=== PATIENT | male | born 1960 | race Caucasian/White ===

== ENCOUNTER 2024-07-29 19:55 | Inpatient (IN) | payer MEDICARE ==
[2024-07-29] MEDS ORDERED: Ondansetron PF 4 MG/2 ML Vial IVP PRN (21:56)
[2024-07-29] MEDS ORDERED: Acetaminophen 325 MG TAB PO PRN (21:56)
[2024-07-29] MEDS ORDERED: hydrALAZINE 20 MG/ML VIAL SLOW IVP PRN (21:59)
[2024-07-29] MEDS: Dexamethasone 4 mg/ml Vial SLOW IVP SCH ×2 (23:09→23:17)
[2024-07-29] MEDS: HYDROcodone/Acetaminophen 7.5/325 mg Tablet PO PRN (23:09)
[2024-07-29] MEDS: Potassium Chloride 20 MEQ TAB PO SCH (23:09)
[2024-07-29 23:20] VITALS: BMI 30.7
[2024-07-30] MEDS ORDERED: Dextrose 5% in Water 1,000 ML IV PRN (04:13)
[2024-07-30] MEDS ORDERED: Glucagon 1 MG/ML KIT IM PRN (04:13)
[2024-07-30] MEDS ORDERED: Insulin Lispro 100 UNIT/ML 10 ML VIAL SC PRN (04:13)
[2024-07-30] MEDS ORDERED: Dextrose 50% Abboject 50 ML SYRINGE SLOW IVP PRN (04:13)
[2024-07-30 05:40] LABS: #Basophils Less than 0.03 10x3/uL (0.0-0.2); #Eosinophils Less than 0.03 10x3/uL (0.0-0.7); %Basophils 0.1 % (0.0-1.0); %Lymphocytes 9.4 % (21.0-51.0); %Monocytes 2.4 % (0.0-10.0); %Neutrophils 87.6 % (42.0-75.0); Hematocrit 35.9 % (42.0-52.0); Hemoglobin 13.1 g/dL (14.0-18.0); Mean Corpuscular HGB CONC 36.5 g/dL (32.0-36.0); Mean Corpuscular Volume 90.4 fL (78.0-98.0); Mean Platelet Volume 9.4 fL (7.4-10.4); Platelet Count 235 10x3/uL (130-400); RBC Distribution Width 12.2 % (11.5-14.5); Red Blood Cell (RBC) Count 3.97 mill/uL (4.70-6.10)
[2024-07-30 05:57] LABS: Hemoglobin A1c 5.5 % (4.0-6.0)
[2024-07-30 06:14] LABS: Anion Gap 15 mmol/L (10-20); BUN (Urea Nitrogen) 20 mg/dL (8.4-25.7); Calc. Creatinine Clearance 114 mL/min (70-130); Calcium 8.2 mg/dL (7.8-10.44); Carbon Dioxide 23 mmol/L (23-31); Chloride 105 mmol/L (98-107); Estimated GFR 97; Glucose 215 mg/dL (80-115); Magnesium 2.2 mg/dL (1.6-2.6); Potassium 3.7 mmol/L (3.5-5.1); Sodium 139 mmol/L (136-145)
[2024-07-30] MEDS: Triamterene/Hydrochlorothiazide 37.5 mg/25 mg Tablet PO SCH (08:15)
[2024-07-30] MEDS: Valsartan 80 MG TAB PO SCH (08:16)
[2024-07-30] MEDS: Amlodipine 10 MG TAB PO SCH (08:16)
[2024-07-30] MEDS ORDERED: Magnevist 469MG/ML 20 ML VIAL ONE (13:42)
[2024-07-30] MEDS: Insulin Lispro 100 UNIT/ML 10 ML VIAL SC PRN (14:16)
[2024-07-30] MEDS ORDERED: Iopamidol 370 76% 100 ML VIAL ONE (14:18)
[2024-07-31 05:32] LABS: #Basophils Less than 0.03 10x3/uL (0.0-0.2); #Eosinophils Less than 0.03 10x3/uL (0.0-0.7); %Monocytes 2.9 % (0.0-10.0); %Neutrophils 90.2 % (42.0-75.0); Hematocrit 36.7 % (42.0-52.0); Hemoglobin 13.3 g/dL (14.0-18.0); Mean Corpuscular HGB CONC 36.2 g/dL (32.0-36.0); Mean Corpuscular Hemoglobin 33.3 pg (27.0-31.0); Mean Platelet Volume 9.2 fL (7.4-10.4); Platelet Count 263 10x3/uL (130-400); RBC Distribution Width 12.4 % (11.5-14.5); Red Blood Cell (RBC) Count 3.99 mill/uL (4.70-6.10)
[2024-07-31 06:04] LABS: Anion Gap 13 mmol/L (10-20); BUN (Urea Nitrogen) 25 mg/dL (8.4-25.7); Calc. Creatinine Clearance 110 mL/min (70-130); Calcium 8.5 mg/dL (7.8-10.44); Carbon Dioxide 25 mmol/L (23-31); Chloride 101 mmol/L (98-107); Estimated GFR 96; Glucose 186 mg/dL (80-115); Magnesium 2.4 mg/dL (1.6-2.6); Potassium 4.1 mmol/L (3.5-5.1); Sodium 135 mmol/L (136-145)
[2024-07-31] MEDS: Pantoprazole DR 40 MG TAB PO SCH (11:56)
[2024-07-31 12:04] VITALS: TEMP 97.6
[2024-07-31 15:23] VITALS: BP 144/77
[2024-08-01] MEDS ORDERED: Pantoprazole DR 40 MG TAB PO SCH (09:00)
== END 2024-07-31 17:15 | disposition home or self-care (01) | DRG 70 ==
LOC: OBS 21:23 → OBSVTOIN 07-30 11:01
PROVIDERS: ADMIT Internal Medicine; ATTEND Internal Medicine
DX: G93.89 Other specified disorders of brain (principal); G93.6 Cerebral edema; I10 Essential (primary) hypertension; R73.9 Hyperglycemia, unspecified
CPT/HCPCS: 36415; 36416; 70450; 70553; 71260; 74177; 76376; 76770; 80048; 80053; 83036; 83735; 85025; 85610; 85730; 93005; 93010; 96365; 96374; 96375; 96376; G0378; J0780; J1100; J1815; Q9967

== ENCOUNTER 2024-08-06 17:59 | Emergency (ER) | payer MEDICARE ==
[2024-08-06 20:30] LABS: Hematocrit 44.1 % (42.0-52.0); Hemoglobin 16.3 g/dL (14.0-18.0); Mean Corpuscular Volume 89.3 fL (78.0-98.0); Platelet Count 321 10x3/uL (130-400); Red Blood Cell (RBC) Count 4.94 mill/uL (4.70-6.10)
[2024-08-06 20:52] LABS: ALT (SGPT) 69 U/L (8-55); AST (SGOT) 27 U/L (5-34); Albumin 4.2 g/dL (3.4-4.8); Alkaline Phosphatase 69 U/L (40-110); Anion Gap 19 mmol/L (10-20); BUN (Urea Nitrogen) 43 mg/dL (8.4-25.7); Bilirubin, Total 2.5 mg/dL (0.2-1.2); Calc. Creatinine Clearance 0 mL/min (70-130); Calcium 8.8 mg/dL (7.8-10.44); Carbon Dioxide 20 mmol/L (23-31); Chloride 98 mmol/L (98-107); Estimated GFR 54; Globulin 3.3 g/dL (2.4-3.5); Glucose 361 mg/dL (80-115); Potassium 3.3 mmol/L (3.5-5.1); Protein, Total 7.5 g/dL (5.8-8.1); Sodium 134 mmol/L (136-145)
[2024-08-06 21:00] LABS: Band 2 % (5-11); Lymphocytes 3 % (21-51); Monocytes 6 % (0-10); Neutrophil 89 % (42-75); Platelet Adequacy Comment Platelets Normal; RBC Morphology Within Normal Limits
[2024-08-06] MEDS ORDERED: Acetaminophen 500 MG TAB ONE (21:14)
[2024-08-06] MEDS ORDERED: Dexamethasone 10 MG/ML VIAL ONE (23:32)
[2024-08-06] MEDS ORDERED: Metoclopramide HCl 10 MG (2 mL) VIAL ONE (23:32)
== END 2024-08-07 00:34 | disposition home or self-care (01) ==
LOC: ERS 17:59
DX: G93.89 Other specified disorders of brain (principal); G93.6 Cerebral edema; H54.7 Unspecified visual loss; I10 Essential (primary) hypertension
CPT/HCPCS: 70450; 80053; 84484; 85025; 93005; J1100; J2765; 36415; 96374; 96375

== ENCOUNTER 2024-08-12 05:22 | Inpatient (IN) | payer MEDICARE ==
[2024-08-12] MEDS ORDERED: Ipratropium/Albuterol 3 ML NEB NEB PRN (10:44)
[2024-08-12] MEDS ORDERED: Dexamethasone 10 MG/ML VIAL SLOW IVP SCH (10:45)
[2024-08-12] MEDS ORDERED: traMADol HCl 50 MG TAB PO PRN (10:58)
[2024-08-12] MEDS: Lactated Ringer's 1,000 ML IV SCH ×2 (11:23)
[2024-08-12 11:24] LABS: Lactic Acid 1.88 mmol/L (0.5-2.2)
[2024-08-12] MEDS: Dexamethasone 4 mg/ml Vial SLOW IVP SCH (11:31)
[2024-08-12] MEDS ORDERED: Acetaminophen 650 MG/20.3 ML UDCUP PO PRN (11:45)
[2024-08-12] MEDS ORDERED: hydrALAZINE 20 MG/ML VIAL SLOW IVP PRN (12:15)
[2024-08-12] MEDS: Insulin Lispro 100 UNIT/ML 10 ML VIAL SC PRN (12:44)
[2024-08-12 13:52] LABS: Anion Gap 19 mmol/L (10-20); BUN (Urea Nitrogen) 94 mg/dL (8.4-25.7); Calc. Creatinine Clearance 38 mL/min (70-130); Calcium 8.2 mg/dL (7.8-10.44); Carbon Dioxide 13 mmol/L (23-31); Chloride 112 mmol/L (98-107); Estimated GFR 32; Glucose 449 mg/dL (80-115); Sodium 140 mmol/L (136-145)
[2024-08-12] MEDS: Insulin Regular, Human 100 UNIT/ML 10 ML VIAL IVP SCH (16:01)
[2024-08-12] MEDS ORDERED: Ventilator Sedation Protocol 1 EACH FS SCH (17:02)
[2024-08-12] MEDS: Etomidate 40 MG (20 mL) VIAL IVP SCH (17:05)
[2024-08-12] MEDS: Vecuronium 10 MG VIAL ONE (17:05)
[2024-08-12] MEDS ORDERED: Fentanyl BOLUS 250 ML IVPB PRN (17:15)
[2024-08-12] MEDS ORDERED: Propofol BOLUS 1,000 MG/100 ML VIAL IV PRN (17:15)
[2024-08-12] MEDS ORDERED: DISCONTINUE PREVIOUS NARCOTIC PAIN MEDICATIONS AND BENZODIAZEPINES FS SCH (17:15)
[2024-08-12] MEDS: Etomidate 40 MG (20 mL) VIAL ONE (17:57)
[2024-08-12] MEDS: Rocuronium Bromide 10 MG/ML (10ML VIAL) IVP SCH (17:58)
[2024-08-12] MEDS ORDERED: Mannitol 12.5 GM/50 ML IV SCH (18:00)
[2024-08-12] MEDS: Mannitol 12.5 GM/50 ML SLOW IVP SCH (18:02)
[2024-08-12 18:04] LABS: Actual Bicarbonate (HCO3a) 15.2 mEq/L (22-28); Base Excess (BEa) -4.7 mEq/L (-2.0 to +3.0); Calcium, Ionized (arterial) 1.16 mmol/L (1.12-1.30); Carboxyhemoglobin (COHb) 0.3 gm% (0.0-3.0); Hematocrit-ABG 48 % (42.0-52.0); Hemoglobin (Hb) 16.2 g/dL (14.0-18.0); O2 Tension (PaO2), arterial 116.9 mmHg (> 80.0); Potassium - ABG Lab 3.56 mmol/L (3.70-5.30); pH, Arterial 7.511 (7.35-7.45)
[2024-08-12 18:07] LABS: CO2 Tension 19.5 mmHg (35.0-45.0)
[2024-08-12 18:08] LABS: ALV-art Gradient 143.925 mmHg (0-20); Puncture Site Right Radial artery
[2024-08-12] MEDS: Lorazepam 2 MG/ML VIAL SLOW IVP PRN (18:10)
[2024-08-12] MEDS ORDERED: fentaNYL PF 100 MCG/2 ML SYRINGE ONE (18:28)
[2024-08-12] MEDS ORDERED: CEFAZOLIN 1 GM VIAL ONE (18:40)
[2024-08-12] MEDS ORDERED: PHENYLEPHRINE-NS 100 MCG/ML 10 ML SYRINGE ONE (18:57)
[2024-08-12] MEDS ORDERED: Vasopressin 20 UNITS/ML VIAL ONE (19:07)
[2024-08-12] MEDS ORDERED: Thrombin 5000 UNITS/5 ML VIAL ONE (19:07)
[2024-08-12] MEDS ORDERED: Rocuronium Bromide 10 MG/ML (10ML VIAL) ONE (19:52)
[2024-08-12] MEDS ORDERED: HYDROmorphone 2 MG/ML VIAL ONE (19:52)
[2024-08-12] MEDS: Propofol 1,000 MG/100 ML VIAL IV PRN (20:48)
[2024-08-12] MEDS: Famotidine/PF 20 mg/2ml Vial SLOW IVP SCH (20:48)
[2024-08-12] MEDS ORDERED: Vancomycin Dose by Levels Sliding Scale (Wt 71-99) FS SCH (21:15)
[2024-08-12] MEDS: Cefepime 2 GM in Sodium Chloride 0.9% 100 ML IVPB SCH (21:57)
[2024-08-13] MEDS: Morphine 2 MG/ML VIAL SLOW IVP PRN (01:06)
[2024-08-13 05:37] LABS: Hemoglobin 14.5 g/dL (14.0-18.0); Mean Corpuscular HGB CONC 35.4 g/dL (32.0-36.0); Mean Corpuscular Hemoglobin 32.8 pg (27.0-31.0); Mean Corpuscular Volume 92.8 fL (78.0-98.0); Mean Platelet Volume 10.8 fL (7.4-10.4); Platelet Count 170 10x3/uL (130-400); RBC Distribution Width 12.6 % (11.5-14.5); Red Blood Cell (RBC) Count 4.42 mill/uL (4.70-6.10)
[2024-08-13 06:02] LABS: ALT (SGPT) 20 U/L (8-55); AST (SGOT) 11 U/L (5-34); Albumin 2.4 g/dL (3.4-4.8); Alkaline Phosphatase 44 U/L (40-110); Anion Gap 13 mmol/L (10-20); BUN (Urea Nitrogen) 74 mg/dL (8.4-25.7); Bilirubin, Total 1.1 mg/dL (0.2-1.2); Calc. Creatinine Clearance 43 mL/min (70-130); Calcium 7.8 mg/dL (7.8-10.44); Carbon Dioxide 15 mmol/L (23-31); Chloride 121 mmol/L (98-107); Estimated GFR 36; Globulin 3.1 g/dL (2.4-3.5); Glucose 258 mg/dL (80-115); Potassium 4.4 mmol/L (3.5-5.1); Protein, Total 5.5 g/dL (5.8-8.1); Sodium 145 mmol/L (136-145)
[2024-08-13 06:31] LABS: Monocytes 5 % (0-10); Neutrophil 95 % (42-75); Platelet Adequacy Comment Platelets Normal; RBC Morphology Within Normal Limits
[2024-08-13 07:12] LABS: Vancomycin, Trough 11.9 ug/mL
[2024-08-13] MEDS ORDERED: Vancomycin 1 GM in Premix 1 BAG IVPB SCH (09:00)
[2024-08-13] MEDS: Amlodipine 10 MG TAB PO SCH (09:17)
[2024-08-13 09:42] LABS: Bilirubin Negative (Negative); Blood, Urine Trace (Negative); Glucose, Urine (Dipstick) Normal (Negative); Ketone, Urine Negative (Negative); Leukocyte Negative Leu/uL (Negative); Nitrite Negative (Negative); Protein, Urine (Dipstick) 20 mg/dL (Neg-Trace); Specific Gravity, Urine 1.031 (1.002-1.036); Squamous Epithelial None Seen HPF (0-3); Urobilinogen Normal mg/dL (Less than 2)
[2024-08-13 09:49] LABS: Sperm/HPF 2+ HPF (None Seen)
[2024-08-13 09:50] LABS: Clarity Hazy (Clear)
[2024-08-13 09:54] LABS: Bacteria/HPF Rare-Few HPF (None Seen); Transitional Epithelial 0-3 HPF (None Seen)
[2024-08-13] MEDS: VANCOMYCIN 1.25 GM/250 ML BAG 1.25 GM in Premix 1 BAG IVPB SCH (11:00)
[2024-08-13] MEDS: Fentanyl CADD 100 ML IV SCH (11:10)
[2024-08-13] MEDS: metroNIDAZOLE 500 MG in Premix 1 BAG IVPB SCH (11:48)
[2024-08-13] MEDS: Albumin 25% 25 GM (100 mL) BOT IVPB SCH (11:48)
[2024-08-13] MEDS ORDERED: metroNIDAZOLE 500 MG in Premix 1 BAG IVPB SCH (14:00)
[2024-08-13] MEDS: Labetalol HCl 100 MG/20 ML VIAL SLOW IVP PRN (18:39)
[2024-08-13] MEDS: hydrALAZINE 20 MG/ML VIAL SLOW IVP PRN (20:34)
[2024-08-14] MEDS: Labetalol HCl 100 MG/20 ML VIAL SLOW IVP SCH (00:41)
[2024-08-14 04:59] LABS: Vancomycin, Random 15.1 ug/mL (See Comment)
[2024-08-14 05:14] LABS: #Basophils Less than 0.03 10x3/uL (0.0-0.2); #Eosinophils Less than 0.03 10x3/uL (0.0-0.7); %Basophils 0.1 % (0.0-1.0); %Lymphocytes 5.8 % (21.0-51.0); %Monocytes 4.9 % (0.0-10.0); %Neutrophils 88.1 % (42.0-75.0); Hematocrit 33.2 % (42.0-52.0); Hemoglobin 11.4 g/dL (14.0-18.0); Mean Corpuscular HGB CONC 33.7 g/dL (32.0-36.0); Mean Corpuscular Hemoglobin 33.1 pg (27.0-31.0); Mean Corpuscular Volume 98.2 fL (78.0-98.0); Mean Platelet Volume 11.1 fL (7.4-10.4); Platelet Count 92 10x3/uL (130-400); Red Blood Cell (RBC) Count 3.35 mill/uL (4.70-6.10)
[2024-08-14 05:19] LABS: ALT (SGPT) 13 U/L (8-55); AST (SGOT) 10 U/L (5-34); Albumin 3.3 g/dL (3.4-4.8); Alkaline Phosphatase 36 U/L (40-110); Anion Gap 14 mmol/L (10-20); BUN (Urea Nitrogen) 61 mg/dL (8.4-25.7); Bilirubin, Total 1.1 mg/dL (0.2-1.2); Calc. Creatinine Clearance 54 mL/min (70-130); Calcium 8.1 mg/dL (7.8-10.44); Carbon Dioxide 17 mmol/L (23-31); Chloride 124 mmol/L (98-107); Estimated GFR 48; Globulin 2.4 g/dL (2.4-3.5); Glucose 255 mg/dL (80-115); Potassium 3.4 mmol/L (3.5-5.1); Protein, Total 5.7 g/dL (5.8-8.1); Sodium 152 mmol/L (136-145)
[2024-08-14 07:04] LABS: Actual Bicarbonate (HCO3a) 17.3 mEq/L (22-28); Calcium, Ionized (arterial) 1.09 mmol/L (1.12-1.30); Carboxyhemoglobin (COHb) 0.3 gm% (0.0-3.0); Hematocrit-ABG 29 % (42.0-52.0); O2 Tension (PaO2), arterial 116.5 mmHg (> 80.0); Potassium - ABG Lab 3.27 mmol/L (3.70-5.30)
[2024-08-14 07:05] LABS: Puncture Site Left Radial artery
[2024-08-14] MEDS: Labetalol HCl 100 MG/20 ML VIAL SLOW IVP PRN (11:08)
[2024-08-14] MEDS ORDERED: Magnevist 469MG/ML 20 ML VIAL ONE (12:01)
[2024-08-14] MEDS: cefTRIAXone\\ROCEPHIN 2 GM in Sodium Chloride 0.9% 100 ML IVPB SCH (14:03)
[2024-08-14] MEDS: Etomidate 40 MG (20 mL) VIAL IVP SCH (16:48)
[2024-08-14] MEDS: Vecuronium 10 MG VIAL IV SCH (16:48)
[2024-08-14] MEDS: metroNIDAZOLE 500 MG in Premix 1 BAG IVPB SCH (20:36)
[2024-08-15 05:54] LABS: Hematocrit 35.2 % (42.0-52.0); Hemoglobin 12.2 g/dL (14.0-18.0); Mean Corpuscular HGB CONC 34.7 g/dL (32.0-36.0); Mean Corpuscular Hemoglobin 33.6 pg (27.0-31.0); Mean Platelet Volume 11.4 fL (7.4-10.4); Platelet Count 93 10x3/uL (130-400); RBC Distribution Width 13.3 % (11.5-14.5); Red Blood Cell (RBC) Count 3.63 mill/uL (4.70-6.10)
[2024-08-15 06:01] LABS: ALT (SGPT) 14 U/L (8-55); AST (SGOT) 11 U/L (5-34); Albumin 3.1 g/dL (3.4-4.8); Alkaline Phosphatase 41 U/L (40-110); Anion Gap 15 mmol/L (10-20); BUN (Urea Nitrogen) 52 mg/dL (8.4-25.7); Bilirubin, Total 0.5 mg/dL (0.2-1.2); Calc. Creatinine Clearance 71 mL/min (70-130); Calcium 8.3 mg/dL (7.8-10.44); Carbon Dioxide 19 mmol/L (23-31); Chloride 124 mmol/L (98-107); Estimated GFR 66; Globulin 2.7 g/dL (2.4-3.5); Glucose 288 mg/dL (80-115); Potassium 3.2 mmol/L (3.5-5.1); Protein, Total 5.8 g/dL (5.8-8.1); Sodium 155 mmol/L (136-145)
[2024-08-15] MEDS: Sodium Chloride 0.45% 1,000 ML IV SCH ×2 (06:17→15:46)
[2024-08-15] MEDS: Potassium Bicarbonate/Cit Ac 20 MEQ TAB PER TUBE SCH ×2 (06:28→13:43)
[2024-08-15] MEDS ORDERED: Electrolyte Replacement Protocol FS PRN (06:30)
[2024-08-15 06:38] LABS: Band 1 % (5-11); Lymphocytes 2 % (21-51); Monocytes 2 % (0-10); Myelocyte 1 % (0-0); Neutrophil 94 % (42-75); Platelet Adequacy Comment Platelets Decreased; Polychromasia SLIGHT = 2-3 cells HPF (0-2)
[2024-08-15 07:17] LABS: Actual Bicarbonate (HCO3a) 18.7 mEq/L (22-28); Base Excess (BEa) -2.6 mEq/L (-2.0 to +3.0); Calcium, Ionized (arterial) 1.13 mmol/L (1.12-1.30); Carboxyhemoglobin (COHb) 0.3 gm% (0.0-3.0); Hematocrit-ABG 34 % (42.0-52.0); Hemoglobin (Hb) 11.5 g/dL (14.0-18.0); O2 Tension (PaO2), arterial 145.7 mmHg (> 80.0); Potassium - ABG Lab 4.01 mmol/L (3.70-5.30); pH, Arterial 7.523 (7.35-7.45)
[2024-08-15 07:20] LABS: CO2 Tension 23.3 mmHg (35.0-45.0); Puncture Site Right Brachial art
[2024-08-15 07:21] LABS: ALV-art Gradient 39.075 mmHg (0-20)
[2024-08-15 07:28] LABS: Metamyelocyte 2 % (0-0)
[2024-08-15] MEDS: niCARdipine 25 MG in Sodium Chloride 0.9% 250 ML 250 ML IVPB SCH (08:53)
[2024-08-15] MEDS: Electrolyte Replacement Protocol 1 EACH FS ONE (09:10)
[2024-08-15] MEDS: chlorproMAZINE HCl 50 MG/2 ML AMP IVPB SCH (09:57)
[2024-08-15] MEDS: SODIUM CHLORIDE 0.9% IVPB SCH ×2 (11:09→18:45)
[2024-08-15] MEDS: CHLORPROMAZINE HCL IVPB SCH (11:09)
[2024-08-15 11:15] LABS: Anion Gap 14 mmol/L (10-20); BUN (Urea Nitrogen) 46 mg/dL (8.4-25.7); Calc. Creatinine Clearance 78 mL/min (70-130); Calcium 8.1 mg/dL (7.8-10.44); Carbon Dioxide 19 mmol/L (23-31); Chloride 123 mmol/L (98-107); Estimated GFR 75; Glucose 322 mg/dL (80-115); Potassium 3.5 mmol/L (3.5-5.1); Sodium 152 mmol/L (136-145)
[2024-08-15 15:18] LABS: Fungitell Beta (1,3) D-Glucan Negative (.)
[2024-08-15] MEDS ORDERED: Glucagon 1 MG/ML KIT IM PRN (16:19)
[2024-08-15] MEDS ORDERED: Dextrose 50% Abboject 50 ML SYRINGE SLOW IVP PRN (16:19)
[2024-08-15] MEDS ORDERED: Dextrose 5% in Water 1,000 ML IV PRN (16:19)
[2024-08-15 16:38] LABS: Sodium 154 mmol/L (136-145)
[2024-08-15] MEDS: fentaNYL 50 mcg/mL 1 mL Vial SLOW IVP SCH (18:00)
[2024-08-15] MEDS: NICARDIPINE IVPB SCH (18:45)
[2024-08-15] MEDS: fentaNYL 50 mcg/mL 1 mL Vial ONE (19:34)
[2024-08-15] MEDS: Insulin Glargine 30 UNITS/0.3 ML VIAL SC SCH (19:55)
[2024-08-15] MEDS: Insulin Lispro 100 UNIT/ML 10 ML VIAL SC PRN (19:56)
[2024-08-16] MEDS: Famotidine/PF 20 mg/2ml Vial SLOW IVP SCH (09:10)
[2024-08-16 09:30] LABS: #Basophils 0.04 10x3/uL (0.0-0.2); %Basophils 0.3 % (0.0-1.0); %Eosinophils 0.2 % (0.0-10.0); %Monocytes 5.2 % (0.0-10.0); %Neutrophils 85.6 % (42.0-75.0); Hematocrit 35.1 % (42.0-52.0); Hemoglobin 11.8 g/dL (14.0-18.0); Mean Corpuscular HGB CONC 33.6 g/dL (32.0-36.0); Mean Platelet Volume 10.7 fL (7.4-10.4); Platelet Count 113 10x3/uL (130-400); RBC Distribution Width 13.3 % (11.5-14.5); Red Blood Cell (RBC) Count 3.58 mill/uL (4.70-6.10)
[2024-08-16 09:59] LABS: ALT (SGPT) 15 U/L (8-55); AST (SGOT) 13 U/L (5-34); Albumin 2.7 g/dL (3.4-4.8); Alkaline Phosphatase 40 U/L (40-110); Anion Gap 13 mmol/L (10-20); BUN (Urea Nitrogen) 37 mg/dL (8.4-25.7); Bilirubin, Total 0.7 mg/dL (0.2-1.2); Calc. Creatinine Clearance 109 mL/min (70-130); Carbon Dioxide 21 mmol/L (23-31); Chloride 124 mmol/L (98-107); Estimated GFR 97; Globulin 2.7 g/dL (2.4-3.5); Glucose 259 mg/dL (80-115); Potassium 3.5 mmol/L (3.5-5.1); Protein, Total 5.4 g/dL (5.8-8.1); Sodium 154 mmol/L (136-145)
[2024-08-16] MEDS: Potassium Bicarbonate/Cit Ac 20 MEQ TAB PER TUBE SCH (12:37)
[2024-08-16] MEDS: Insulin Lispro 100 UNIT/ML 10 ML VIAL SC PRN (20:25)
[2024-08-16] MEDS: Ondansetron PF 4 MG/2 ML Vial IVP PRN (22:57)
[2024-08-17 04:14] LABS: #Basophils Less than 0.03 10x3/uL (0.0-0.2); %Basophils 0.1 % (0.0-1.0); %Eosinophils 0.2 % (0.0-10.0); %Lymphocytes 7.3 % (21.0-51.0); %Neutrophils 85.7 % (42.0-75.0); Hematocrit 33.5 % (42.0-52.0); Hemoglobin 11.3 g/dL (14.0-18.0); Mean Corpuscular HGB CONC 33.7 g/dL (32.0-36.0); Mean Corpuscular Hemoglobin 33.3 pg (27.0-31.0); Mean Corpuscular Volume 98.8 fL (78.0-98.0); Mean Platelet Volume 10.8 fL (7.4-10.4); Platelet Count 115 10x3/uL (130-400); RBC Distribution Width 13.3 % (11.5-14.5); Red Blood Cell (RBC) Count 3.39 mill/uL (4.70-6.10)
[2024-08-17 04:35] LABS: ALT (SGPT) 19 U/L (8-55); AST (SGOT) 17 U/L (5-34); Albumin 2.4 g/dL (3.4-4.8); Alkaline Phosphatase 38 U/L (40-110); Anion Gap 13 mmol/L (10-20); BUN (Urea Nitrogen) 33 mg/dL (8.4-25.7); Bilirubin, Total 0.7 mg/dL (0.2-1.2); Calc. Creatinine Clearance 109 mL/min (70-130); Calcium 7.5 mg/dL (7.8-10.44); Carbon Dioxide 20 mmol/L (23-31); Chloride 122 mmol/L (98-107); Estimated GFR 97; Globulin 2.7 g/dL (2.4-3.5); Glucose 245 mg/dL (80-115); Potassium 3.5 mmol/L (3.5-5.1); Protein, Total 5.1 g/dL (5.8-8.1); Sodium 151 mmol/L (136-145)
[2024-08-17] MEDS ORDERED: DISCONTINUE PREVIOUS NARCOTIC PAIN MEDICATIONS AND BENZODIAZEPINES FS SCH (18:45)
[2024-08-17] MEDS ORDERED: Fentanyl BOLUS 250 ML IVPB PRN (18:45)
[2024-08-17] MEDS ORDERED: Fentanyl CADD 100 ML IV SCH (18:45)
[2024-08-17] MEDS ORDERED: Propofol BOLUS 1,000 MG/100 ML VIAL IV PRN (18:45)
[2024-08-17] MEDS: Morphine 2 MG/ML VIAL SLOW IVP PRN (20:14)
[2024-08-18 05:51] LABS: #Basophils Less than 0.03 10x3/uL (0.0-0.2); %Basophils 0.1 % (0.0-1.0); %Eosinophils 0.6 % (0.0-10.0); %Lymphocytes 8.8 % (21.0-51.0); %Monocytes 4.4 % (0.0-10.0); %Neutrophils 83.9 % (42.0-75.0); Hematocrit 31.5 % (42.0-52.0); Hemoglobin 10.7 g/dL (14.0-18.0); Mean Corpuscular Hemoglobin 33.3 pg (27.0-31.0); Mean Corpuscular Volume 98.1 fL (78.0-98.0); Mean Platelet Volume 10.9 fL (7.4-10.4); Platelet Count 103 10x3/uL (130-400); Red Blood Cell (RBC) Count 3.21 mill/uL (4.70-6.10)
[2024-08-18 06:06] LABS: ALT (SGPT) 25 U/L (8-55); AST (SGOT) 21 U/L (5-34); Albumin 2.2 g/dL (3.4-4.8); Alkaline Phosphatase 36 U/L (40-110); Anion Gap 10 mmol/L (10-20); BUN (Urea Nitrogen) 31 mg/dL (8.4-25.7); Bilirubin, Total 0.5 mg/dL (0.2-1.2); Calc. Creatinine Clearance 143 mL/min (70-130); Calcium 7.1 mg/dL (7.8-10.44); Carbon Dioxide 22 mmol/L (23-31); Chloride 119 mmol/L (98-107); Estimated GFR 104; Globulin 2.4 g/dL (2.4-3.5); Glucose 136 mg/dL (80-115); Potassium 3.2 mmol/L (3.5-5.1); Protein, Total 4.6 g/dL (5.8-8.1); Sodium 148 mmol/L (136-145)
[2024-08-18 07:18] LABS: Actual Bicarbonate (HCO3a) 22.4 mEq/L (22-28); Base Excess (BEa) -0.5 mEq/L (-2.0 to +3.0); CO2 Tension 30.7 mmHg (35.0-45.0); Calcium, Ionized (arterial) 1.07 mmol/L (1.12-1.30); Carboxyhemoglobin (COHb) 0.3 gm% (0.0-3.0); Hematocrit-ABG 31 % (42.0-52.0); Hemoglobin (Hb) 10.5 g/dL (14.0-18.0); O2 Tension (PaO2), arterial 127.6 mmHg (> 80.0); Potassium - ABG Lab 3.06 mmol/L (3.70-5.30); pH, Arterial 7.481 (7.35-7.45)
[2024-08-18 07:29] LABS: Puncture Site Right Radial artery
[2024-08-18 07:30] LABS: ALV-art Gradient 47.925 mmHg (0-20)
[2024-08-18] MEDS: Potassium Chloride 20 MEQ TAB PO SCH (09:32)
[2024-08-18 20:15] LABS: Potassium 3.4 mmol/L (3.5-5.1)
[2024-08-18] MEDS: Potassium Chloride 20 MEQ in Premix 1 BAG IVPB SCH (22:44)
[2024-08-19] MEDS: Propofol 1,000 MG/100 ML VIAL IV PRN (02:29)
[2024-08-19 05:40] LABS: ALT (SGPT) 32 U/L (8-55); AST (SGOT) 25 U/L (5-34); Albumin 2.1 g/dL (3.4-4.8); Alkaline Phosphatase 45 U/L (40-110); Anion Gap 10 mmol/L (10-20); BUN (Urea Nitrogen) 29 mg/dL (8.4-25.7); Bilirubin, Total 0.4 mg/dL (0.2-1.2); Calc. Creatinine Clearance 146 mL/min (70-130); Calcium 6.9 mg/dL (7.8-10.44); Carbon Dioxide 20 mmol/L (23-31); Chloride 117 mmol/L (98-107); Estimated GFR 103; Globulin 2.5 g/dL (2.4-3.5); Glucose 197 mg/dL (80-115); Potassium 3.4 mmol/L (3.5-5.1); Protein, Total 4.6 g/dL (5.8-8.1); Sodium 144 mmol/L (136-145)
[2024-08-19 06:28] LABS: #Basophils Less than 0.03 10x3/uL (0.0-0.2); %Basophils 0.1 % (0.0-1.0); %Eosinophils 0.6 % (0.0-10.0); %Lymphocytes 6.5 % (21.0-51.0); %Monocytes 4.6 % (0.0-10.0); Hematocrit 33.2 % (42.0-52.0); Hemoglobin 11.2 g/dL (14.0-18.0); Mean Corpuscular HGB CONC 33.7 g/dL (32.0-36.0); Mean Corpuscular Volume 97.9 fL (78.0-98.0); Mean Platelet Volume 11.9 fL (7.4-10.4); Platelet Count 100 10x3/uL (130-400); RBC Distribution Width 13.1 % (11.5-14.5); Red Blood Cell (RBC) Count 3.39 mill/uL (4.70-6.10)
[2024-08-19] MEDS: CALCIUM GLUC 1 GM/NS 50 ML 1 GM in Premix 1 BAG IVPB SCH (06:32)
[2024-08-19 07:11] LABS: Actual Bicarbonate (HCO3a) 22.7 mEq/L (22-28); Base Excess (BEa) 0.5 mEq/L (-2.0 to +3.0); CO2 Tension 28.3 mmHg (35.0-45.0); Calcium, Ionized (arterial) 1.05 mmol/L (1.12-1.30); Carboxyhemoglobin (COHb) 0.3 gm% (0.0-3.0); Hematocrit-ABG 30 % (42.0-52.0); Hemoglobin (Hb) 10.3 g/dL (14.0-18.0); O2 Tension (PaO2), arterial 127.7 mmHg (> 80.0); Potassium - ABG Lab 3.17 mmol/L (3.70-5.30); pH, Arterial 7.522 (7.35-7.45)
[2024-08-19 07:16] LABS: ALV-art Gradient 50.825 mmHg (0-20); Puncture Site Right Radial artery
[2024-08-19] MEDS: Potassium Chloride 20 MEQ TAB PO SCH (10:03)
[2024-08-19 18:03] LABS: Potassium 4.9 mmol/L (3.5-5.1)
[2024-08-20 06:23] LABS: #Basophils Less than 0.03 10x3/uL (0.0-0.2); %Basophils 0.2 % (0.0-1.0); %Eosinophils 0.7 % (0.0-10.0); %Lymphocytes 6.4 % (21.0-51.0); %Monocytes 3.6 % (0.0-10.0); %Neutrophils 87.2 % (42.0-75.0); Hematocrit 28.8 % (42.0-52.0); Hemoglobin 9.8 g/dL (14.0-18.0); Mean Corpuscular Hemoglobin 33.1 pg (27.0-31.0); Mean Corpuscular Volume 97.3 fL (78.0-98.0); Mean Platelet Volume 11.4 fL (7.4-10.4); Platelet Count 126 10x3/uL (130-400); Red Blood Cell (RBC) Count 2.96 mill/uL (4.70-6.10)
[2024-08-20 06:36] LABS: ALT (SGPT) 30 U/L (8-55); AST (SGOT) 20 U/L (5-34); Albumin 1.9 g/dL (3.4-4.8); Alkaline Phosphatase 46 U/L (40-110); Anion Gap 13 mmol/L (10-20); BUN (Urea Nitrogen) 27 mg/dL (8.4-25.7); Bilirubin, Total 0.3 mg/dL (0.2-1.2); Calc. Creatinine Clearance 148 mL/min (70-130); Calcium 7.4 mg/dL (7.8-10.44); Carbon Dioxide 22 mmol/L (23-31); Chloride 116 mmol/L (98-107); Estimated GFR 103; Globulin 2.6 g/dL (2.4-3.5); Glucose 226 mg/dL (80-115); Potassium 3.6 mmol/L (3.5-5.1); Protein, Total 4.5 g/dL (5.8-8.1); Sodium 147 mmol/L (136-145)
[2024-08-20] MEDS: Sodium Chloride 0.45% 1,000 ML IV SCH (09:18)
[2024-08-20 09:21] LABS: HIV (1/2) Antibody/Antigen NONREACTIVE (NonReactive); HIV 1/2 INDEX 0.04 S/CO (<1.00)
[2024-08-20 10:32] LABS: CO2 Tension 21.2 mmHg (35.0-45.0)
[2024-08-20] MEDS: hydrALAZINE 20 MG/ML VIAL SLOW IVP PRN (21:06)
[2024-08-21 05:56] LABS: #Basophils 0.03 10x3/uL (0.0-0.2); %Basophils 0.2 % (0.0-1.0); %Eosinophils 0.6 % (0.0-10.0); %Lymphocytes 6.7 % (21.0-51.0); %Monocytes 4.3 % (0.0-10.0); %Neutrophils 85.6 % (42.0-75.0); Hematocrit 28.1 % (42.0-52.0); Hemoglobin 9.4 g/dL (14.0-18.0); Mean Corpuscular HGB CONC 33.5 g/dL (32.0-36.0); Mean Corpuscular Hemoglobin 33.1 pg (27.0-31.0); Mean Corpuscular Volume 98.9 fL (78.0-98.0); Mean Platelet Volume 10.7 fL (7.4-10.4); Platelet Count 134 10x3/uL (130-400); RBC Distribution Width 13.2 % (11.5-14.5); Red Blood Cell (RBC) Count 2.84 mill/uL (4.70-6.10)
[2024-08-21 06:33] LABS: ALT (SGPT) 25 U/L (8-55); AST (SGOT) 16 U/L (5-34); Albumin 1.8 g/dL (3.4-4.8); Alkaline Phosphatase 42 U/L (40-110); Anion Gap 9 mmol/L (10-20); BUN (Urea Nitrogen) 24 mg/dL (8.4-25.7); Bilirubin, Total 0.4 mg/dL (0.2-1.2); Calc. Creatinine Clearance 182 mL/min (70-130); Calcium 7.3 mg/dL (7.8-10.44); Carbon Dioxide 23 mmol/L (23-31); Chloride 120 mmol/L (98-107); Estimated GFR 110; Globulin 2.4 g/dL (2.4-3.5); Glucose 155 mg/dL (80-115); Potassium 3.3 mmol/L (3.5-5.1); Protein, Total 4.2 g/dL (5.8-8.1); Sodium 149 mmol/L (136-145)
[2024-08-21 07:30] LABS: Actual Bicarbonate (HCO3a) 23.4 mEq/L (22-28); Base Excess (BEa) 0.7 mEq/L (-2.0 to +3.0); CO2 Tension 30.5 mmHg (35.0-45.0); Hematocrit-ABG 28 % (42.0-52.0); Hemoglobin (Hb) 9.6 g/dL (14.0-18.0); Potassium - ABG Lab 3.19 mmol/L (3.70-5.30); pH, Arterial 7.503 (7.35-7.45)
[2024-08-21 08:22] LABS: Puncture Site Left Radial artery
[2024-08-21 08:23] LABS: ALV-art Gradient 53.775 mmHg (0-20)
[2024-08-21] MEDS: Potassium Chloride 20 MEQ TAB PO SCH (09:25)
[2024-08-21 21:28] LABS: Potassium 3.9 mmol/L (3.5-5.1)
[2024-08-22] MEDS ORDERED: Lidocaine 1% PF 5 ML VIAL ONE (09:58)
[2024-08-22] MEDS ORDERED: Sodium Bicarbonate 2.5 MEQ/5 ML SDV ONE (09:58)
[2024-08-22] MEDS ORDERED: Heparin 1,000 UNITS/500ML (ARTLINE) ONE (09:58)
[2024-08-22] MEDS ORDERED: Famotidine/PF 20 mg/2ml Vial ONE (20:00)
[2024-08-22] MEDS ORDERED: metroNIDAZOLE 500 MG (100 mL) BAG ONE (20:00)
[2024-08-23] MEDS ORDERED: cefTRIAXone (ROCEPHIN) 2 GM VIAL ONE ×2 (05:17→13:51)
[2024-08-23] MEDS ORDERED: hydrALAZINE 20 MG/ML VIAL ONE (05:17)
[2024-08-23] MEDS ORDERED: Vecuronium 10 MG VIAL ONE (09:09)
[2024-08-23] MEDS ORDERED: Famotidine/PF 20 mg/2ml Vial ONE (09:09)
[2024-08-23] MEDS ORDERED: fentaNYL 50 mcg/mL 1 mL Vial ONE ×3 (09:20→09:47)
[2024-08-23] MEDS ORDERED: Midazolam HCl 2 mg/2 ml Vial ONE ×4 (09:20→09:47)
[2024-08-23] MEDS ORDERED: Lidocaine 1% w/Epinephrine 1:100K 20 ML VIAL ONE (09:35)
[2024-08-23] MEDS ORDERED: Iopamidol 370 76% 100 ML VIAL ONE (11:48)
[2024-08-23] MEDS ORDERED: metroNIDAZOLE 500 MG (100 mL) BAG ONE (11:52)
[2024-08-23] MEDS ORDERED: hydrALAZINE 10 MG TAB ONE (15:48)
[2024-08-23] MEDS ORDERED: Furosemide 40 MG (4 mL) VIAL ONE (17:22)
[2024-08-24] MEDS: Lidocaine 1% w/Epinephrine 1:100K 20 ML VIAL ONE
[2024-08-24] MEDS: Midazolam HCl 2 mg/2 ml Vial ONE ×2
[2024-08-24] MEDS: Vecuronium 10 MG VIAL ONE
[2024-08-24] MEDS: Furosemide 40 MG (4 mL) VIAL ONE (00:01)
[2024-08-24] MEDS: Furosemide 40 MG (4 mL) VIAL SLOW IVP SCH ×2 (00:01→08:51)
[2024-08-24] MEDS: fentaNYL 50 mcg/mL 1 mL Vial ONE ×3 (00:01)
[2024-08-24 02:51] LABS: #Basophils 0.02 10x3/uL (0.0-0.2); #Monocytes 0.43 10x3/uL (0.11-0.59); #Neutrophils 8.74 10x3/uL (1.40-6.50); %Basophils 0.2 % (0.0-1.0); %Lymphocytes 6.8 % (21.0-51.0); %Monocytes 4.1 % (0.0-10.0); Hematocrit 28.6 % (42.0-52.0); Hemoglobin 9.6 g/dL (14.0-18.0); Mean Corpuscular HGB CONC 33.6 g/dL (32.0-36.0); Mean Corpuscular Hemoglobin 33.1 pg (27.0-31.0); Mean Corpuscular Volume 98.6 fL (78.0-98.0); Mean Platelet Volume 10.6 fL (7.4-10.4); Platelet Count 173 10x3/uL (130-400); RBC Distribution Width 13.2 % (11.5-14.5); White Blood Cell (WBC) Count 10.41 10x3/uL (4.8-10.8)
[2024-08-24 04:31] LABS: #Basophils Less than 0.03 10x3/uL (0.0-0.2); %Basophils 0.3 % (0.0-1.0); %Eosinophils 0.8 % (0.0-10.0); %Lymphocytes 7.4 % (21.0-51.0); %Monocytes 4.6 % (0.0-10.0); %Neutrophils 84.8 % (42.0-75.0); Hematocrit 28.3 % (42.0-52.0); Hemoglobin 9.5 g/dL (14.0-18.0); Mean Corpuscular HGB CONC 33.6 g/dL (32.0-36.0); Mean Corpuscular Hemoglobin 32.8 pg (27.0-31.0); Mean Corpuscular Volume 97.6 fL (78.0-98.0); Mean Platelet Volume 9.9 fL (7.4-10.4); Platelet Count 165 10x3/uL (130-400); RBC Distribution Width 13.2 % (11.5-14.5)
[2024-08-24 05:12] LABS: ALT (SGPT) 21 U/L (8-55); AST (SGOT) 20 U/L (5-34); Albumin 1.9 g/dL (3.4-4.8); Alkaline Phosphatase 42 U/L (40-110); Anion Gap 8 mmol/L (10-20); BUN (Urea Nitrogen) 18 mg/dL (8.4-25.7); Bilirubin, Total 0.3 mg/dL (0.2-1.2); Calc. Creatinine Clearance 200 mL/min (70-130); Calcium 7.2 mg/dL (7.8-10.44); Carbon Dioxide 27 mmol/L (23-31); Chloride 115 mmol/L (98-107); Estimated GFR 113; Globulin 2.6 g/dL (2.4-3.5); Glucose 103 mg/dL (80-115); Potassium 2.8 mmol/L (3.5-5.1); Protein, Total 4.5 g/dL (5.8-8.1); Sodium 147 mmol/L (136-145)
[2024-08-24] MEDS ORDERED: Potassium Chloride 20 MEQ TAB PO SCH (08:00)
[2024-08-24] MEDS: Potassium Chloride 40 MEQ in Premix 1 BAG IVPB SCH ×2 (08:43→18:30)
[2024-08-24] MEDS: Electrolyte Replacement Protocol 1 EACH FS ONE (09:00)
[2024-08-24 09:31] LABS: Anion Gap 8 mmol/L (10-20); BUN (Urea Nitrogen) 21 mg/dL (8.4-25.7); Calc. Creatinine Clearance 192 mL/min (70-130); Calcium 7.2 mg/dL (7.8-10.44); Carbon Dioxide 25 mmol/L (23-31); Chloride 116 mmol/L (98-107); Estimated GFR 112; Glucose 155 mg/dL (80-115); Magnesium 2.2 mg/dL (1.6-2.6); Phosphorus 2.9 mg/dL (2.3-4.7); Potassium 3.2 mmol/L (3.5-5.1); Sodium 146 mmol/L (136-145)
[2024-08-24] MEDS ORDERED: Electrolyte Replacement Protocol FS PRN (10:15)
[2024-08-24] MEDS ORDERED: Midazolam HCl 2 mg/2 ml Vial ONE (13:20)
[2024-08-24] MEDS ORDERED: fentaNYL 50 mcg/mL 1 mL Vial ONE (13:21)
[2024-08-24] MEDS ORDERED: Propofol 500 MG/50 ML VIAL ONE (13:21)
[2024-08-24] MEDS ORDERED: PHENYLEPHRINE-NS 100 MCG/ML 10 ML SYRINGE ONE ×2 (13:30→13:45)
[2024-08-24] MEDS ORDERED: ePHEDrine Sulfate 50 MG/10 ML VIAL ONE (13:30)
[2024-08-24] MEDS ORDERED: PROPOFOL 200 MG/20 ML VIAL ONE (13:30)
[2024-08-24 16:27] LABS: Chloride 117 mmol/L (98-107); Potassium 3.3 mmol/L (3.5-5.1); Sodium 147 mmol/L (136-145)
[2024-08-24 16:28] LABS: Anion Gap 9 mmol/L (10-20); Carbon Dioxide 23 mmol/L (23-31)
[2024-08-25] MEDS: cefTRIAXone (ROCEPHIN) 2 GM VIAL ONE (04:47)
[2024-08-25 04:53] LABS: #Basophils Less than 0.03 10x3/uL (0.0-0.2); #Eosinophils Less than 0.03 10x3/uL (0.0-0.7); %Basophils 0.1 % (0.0-1.0); %Eosinophils 0.3 % (0.0-10.0); %Lymphocytes 5.3 % (21.0-51.0); %Monocytes 4.4 % (0.0-10.0); %Neutrophils 88.2 % (42.0-75.0); Hematocrit 27.9 % (42.0-52.0); Hemoglobin 9.5 g/dL (14.0-18.0); Mean Corpuscular HGB CONC 34.1 g/dL (32.0-36.0); Mean Corpuscular Hemoglobin 32.8 pg (27.0-31.0); Mean Corpuscular Volume 96.2 fL (78.0-98.0); Mean Platelet Volume 10.4 fL (7.4-10.4); Platelet Count 171 10x3/uL (130-400); RBC Distribution Width 13.4 % (11.5-14.5)
[2024-08-25 05:12] LABS: ALT (SGPT) 22 U/L (8-55); AST (SGOT) 21 U/L (5-34); Albumin 1.9 g/dL (3.4-4.8); Alkaline Phosphatase 41 U/L (40-110); Anion Gap 11 mmol/L (10-20); BUN (Urea Nitrogen) 21 mg/dL (8.4-25.7); Bilirubin, Total 0.4 mg/dL (0.2-1.2); Calc. Creatinine Clearance 211 mL/min (70-130); Calcium 7.1 mg/dL (7.8-10.44); Carbon Dioxide 24 mmol/L (23-31); Chloride 117 mmol/L (98-107); Estimated GFR 115; Globulin 2.5 g/dL (2.4-3.5); Glucose 88 mg/dL (80-115); Protein, Total 4.4 g/dL (5.8-8.1); Sodium 149 mmol/L (136-145)
[2024-08-25] MEDS: Potassium Chloride 20 MEQ in Premix 1 BAG IVPB SCH ×2 (05:43→17:19)
[2024-08-25] MEDS: Potassium Chloride 20 MEQ TAB PO SCH (06:36)
[2024-08-25] MEDS ORDERED: PHENYLEPHRINE-NS 100 MCG/ML 10 ML SYRINGE ONE ×2 (07:58→09:00)
[2024-08-25] MEDS ORDERED: PROPOFOL 20 ML ONE (07:58)
[2024-08-25] MEDS ORDERED: Fentanyl 250 MCG/5 ML VIAL ONE (07:58)
[2024-08-25] MEDS ORDERED: MINERAL OIL/WHITE PETROLATUM 3.5 GM TUBE ONE (08:43)
[2024-08-25] MEDS ORDERED: SUGAMMADEX SODIUM 200 MG/2 ML VIAL ONE (08:57)
[2024-08-25] MEDS ORDERED: fentaNYL PF 100 MCG/2 ML SYRINGE ONE (09:03)
[2024-08-25] MEDS: Pantoprazole 40 MG VIAL IVP SCH (09:43)
[2024-08-25] MEDS: Dextrose 5% in Water 1,000 ML IV SCH (09:44)
[2024-08-25] MEDS: Albumin 25% 25 GM (100 mL) BOT IVPB SCH (11:45)
[2024-08-25 13:09] LABS: Potassium 3.1 mmol/L (3.5-5.1)
[2024-08-25] MEDS: Furosemide 40 MG (4 mL) VIAL SLOW IVP SCH (14:01)
[2024-08-25] MEDS: Potassium Bicarbonate/Cit Ac 20 MEQ TAB PO SCH (14:23)
[2024-08-25 17:11] LABS: Potassium 3.1 mmol/L (3.5-5.1)
[2024-08-25 17:17] LABS: Magnesium 1.9 mg/dL (1.6-2.6)
[2024-08-25 18:06] VITALS: BMI 32.5
[2024-08-25] MEDS: Magnesium 2 GM/50 ML(in water) 2 GM in Premix 1 BAG IVPB SCH (23:17)
[2024-08-26 05:19] LABS: #Basophils Less than 0.03 10x3/uL (0.0-0.2); #Eosinophils Less than 0.03 10x3/uL (0.0-0.7); %Basophils 0.2 % (0.0-1.0); %Eosinophils 0.1 % (0.0-10.0); %Lymphocytes 5.5 % (21.0-51.0); %Monocytes 4.5 % (0.0-10.0); %Neutrophils 88.4 % (42.0-75.0); Mean Corpuscular HGB CONC 33.3 g/dL (32.0-36.0); Mean Corpuscular Hemoglobin 32.7 pg (27.0-31.0); Mean Corpuscular Volume 98.2 fL (78.0-98.0); Mean Platelet Volume 9.9 fL (7.4-10.4); Platelet Count 192 10x3/uL (130-400); Red Blood Cell (RBC) Count 2.75 mill/uL (4.70-6.10)
[2024-08-26 05:58] LABS: ALT (SGPT) 19 U/L (8-55); AST (SGOT) 21 U/L (5-34); Albumin 2.4 g/dL (3.4-4.8); Alkaline Phosphatase 49 U/L (40-110); Anion Gap 11 mmol/L (10-20); BUN (Urea Nitrogen) 20 mg/dL (8.4-25.7); Bilirubin, Total 0.4 mg/dL (0.2-1.2); Calc. Creatinine Clearance 167 mL/min (70-130); Carbon Dioxide 24 mmol/L (23-31); Chloride 113 mmol/L (98-107); Estimated GFR 108; Globulin 2.3 g/dL (2.4-3.5); Glucose 137 mg/dL (80-115); Magnesium 2.5 mg/dL (1.6-2.6); Potassium 3.1 mmol/L (3.5-5.1); Protein, Total 4.7 g/dL (5.8-8.1); Sodium 145 mmol/L (136-145)
[2024-08-26] MEDS: Potassium Chloride 20 MEQ in Premix 1 BAG IVPB SCH (06:21)
[2024-08-26] MEDS: Potassium Chloride 20 MEQ TAB PO SCH (12:46)
[2024-08-26 14:32] LABS: Potassium 3.5 mmol/L (3.5-5.1)
[2024-08-26 17:30] LABS: Color Of CSF Supernatant COLORLESS (Colorless); Tube # 1; Unspun CSF Color COLORLESS (Colorless)
[2024-08-26 17:36] LABS: CSF Source CSF; Clarity Clear (Clear); Tube # EDTA
[2024-08-26 17:56] LABS: CSF, Glucose 65 mg/dl (40-70); CSF, Protein 72.7 mg/dL (15-40)
[2024-08-26 17:59] LABS: Cell Count Non Hematic 7 %; Lymphocytes 4 %; Segmented Neutrophils 89 %
[2024-08-26] MEDS: Insulin Lispro 100 UNIT/ML 10 ML VIAL SC PRN (22:40)
[2024-08-27 06:03] LABS: #Basophils Less than 0.03 10x3/uL (0.0-0.2); #Eosinophils Less than 0.03 10x3/uL (0.0-0.7); %Basophils 0.1 % (0.0-1.0); %Eosinophils 0.3 % (0.0-10.0); %Lymphocytes 8.8 % (21.0-51.0); %Monocytes 5.4 % (0.0-10.0); %Neutrophils 81.3 % (42.0-75.0); Hematocrit 25.6 % (42.0-52.0); Hemoglobin 8.5 g/dL (14.0-18.0); Mean Corpuscular HGB CONC 33.2 g/dL (32.0-36.0); Mean Corpuscular Hemoglobin 32.9 pg (27.0-31.0); Mean Corpuscular Volume 99.2 fL (78.0-98.0); Mean Platelet Volume 9.7 fL (7.4-10.4); Platelet Count 193 10x3/uL (130-400); RBC Distribution Width 14.4 % (11.5-14.5); Red Blood Cell (RBC) Count 2.58 mill/uL (4.70-6.10)
[2024-08-27 06:21] LABS: ALT (SGPT) 23 U/L (8-55); AST (SGOT) 29 U/L (5-34); Albumin 2.6 g/dL (3.4-4.8); Alkaline Phosphatase 50 U/L (40-110); Anion Gap 8 mmol/L (10-20); BUN (Urea Nitrogen) 18 mg/dL (8.4-25.7); Bilirubin, Total 0.4 mg/dL (0.2-1.2); Calc. Creatinine Clearance 177 mL/min (70-130); Carbon Dioxide 28 mmol/L (23-31); Chloride 111 mmol/L (98-107); Estimated GFR 110; Globulin 2.1 g/dL (2.4-3.5); Glucose 168 mg/dL (80-115); Potassium 2.9 mmol/L (3.5-5.1); Protein, Total 4.7 g/dL (5.8-8.1); Sodium 144 mmol/L (136-145)
[2024-08-27] MEDS: Potassium Chloride 20 MEQ TAB PO SCH (06:45)
[2024-08-27] MEDS: Potassium Bicarbonate/Cit Ac 20 MEQ TAB PER TUBE SCH ×2 (08:51→20:09)
[2024-08-27] MEDS: Potassium Bicarbonate/Cit Ac 20 MEQ TAB PO SCH (08:52)
[2024-08-27] MEDS: Lorazepam 2 MG/ML VIAL SLOW IVP PRN (12:25)
[2024-08-27 18:33] LABS: Potassium 3.2 mmol/L (3.5-5.1)
[2024-08-28 05:18] LABS: Hematocrit 26.4 % (42.0-52.0); Hemoglobin 8.8 g/dL (14.0-18.0); Mean Corpuscular HGB CONC 33.3 g/dL (32.0-36.0); Mean Corpuscular Hemoglobin 33.2 pg (27.0-31.0); Mean Corpuscular Volume 99.6 fL (78.0-98.0); Mean Platelet Volume 9.3 fL (7.4-10.4); Platelet Count 226 10x3/uL (130-400); RBC Distribution Width 14.6 % (11.5-14.5); Red Blood Cell (RBC) Count 2.65 mill/uL (4.70-6.10)
[2024-08-28 05:50] LABS: ALT (SGPT) 25 U/L (8-55); AST (SGOT) 28 U/L (5-34); Albumin 2.4 g/dL (3.4-4.8); Alkaline Phosphatase 59 U/L (40-110); Anion Gap 8 mmol/L (10-20); BUN (Urea Nitrogen) 16 mg/dL (8.4-25.7); Bilirubin, Total 0.4 mg/dL (0.2-1.2); Calc. Creatinine Clearance 171 mL/min (70-130); Calcium 7.1 mg/dL (7.8-10.44); Carbon Dioxide 27 mmol/L (23-31); Chloride 111 mmol/L (98-107); Estimated GFR 109; Globulin 2.3 g/dL (2.4-3.5); Glucose 181 mg/dL (80-115); Potassium 3.5 mmol/L (3.5-5.1); Protein, Total 4.7 g/dL (5.8-8.1); Sodium 142 mmol/L (136-145)
[2024-08-28 05:54] LABS: Eosinophils 1 % (0-10); Lymphocytes 6 % (21-51); Myelocyte 2 % (0-0); Neutrophil 91 % (42-75); Nucleated RBC (Manual Ct) 1 % (0); Platelet Adequacy Comment Platelets Normal; Polychromasia SLIGHT = 2-3 cells HPF (0-2)
[2024-08-28 07:34] LABS: Magnesium 2.1 mg/dL (1.6-2.6)
[2024-08-29 05:03] LABS: Hematocrit 27.8 % (42.0-52.0); Hemoglobin 9.3 g/dL (14.0-18.0); Mean Corpuscular HGB CONC 33.5 g/dL (32.0-36.0); Mean Corpuscular Hemoglobin 32.9 pg (27.0-31.0); Mean Corpuscular Volume 98.2 fL (78.0-98.0); Mean Platelet Volume 9.6 fL (7.4-10.4); Platelet Count 241 10x3/uL (130-400); RBC Distribution Width 14.6 % (11.5-14.5); Red Blood Cell (RBC) Count 2.83 mill/uL (4.70-6.10)
[2024-08-29 05:09] LABS: ALT (SGPT) 25 U/L (8-55); AST (SGOT) 21 U/L (5-34); Albumin 2.4 g/dL (3.4-4.8); Alkaline Phosphatase 61 U/L (40-110); Anion Gap 9 mmol/L (10-20); BUN (Urea Nitrogen) 15 mg/dL (8.4-25.7); Bilirubin, Total 0.4 mg/dL (0.2-1.2); Calc. Creatinine Clearance 175 mL/min (70-130); Calcium 7.4 mg/dL (7.8-10.44); Carbon Dioxide 29 mmol/L (23-31); Chloride 109 mmol/L (98-107); Estimated GFR 111; Globulin 2.5 g/dL (2.4-3.5); Glucose 202 mg/dL (80-115); Potassium 3.1 mmol/L (3.5-5.1); Protein, Total 4.9 g/dL (5.8-8.1); Sodium 144 mmol/L (136-145)
[2024-08-29 05:36] LABS: Anisocytosis SLIGHT = 6-15 cells HPF (0-5); Lymphocytes 10 % (21-51); Macrocytosis SLIGHT = 6-15 cells HPF (0-5); Monocytes 4 % (0-10); Neutrophil 86 % (42-75); Nucleated RBC (Manual Ct) 1 % (0); Platelet Adequacy Comment Platelets Normal; Polychromasia SLIGHT = 2-3 cells HPF (0-2); Smudge Cells 4.9 %; Stomatocytes SLIGHT = 2-5 cells HPF (0-1)
[2024-08-29 10:26] LABS: Magnesium 2.1 mg/dL (1.6-2.6)
[2024-08-29] MEDS: Potassium Bicarbonate/Cit Ac 20 MEQ TAB PO SCH (13:30)
[2024-08-30 04:40] LABS: Hematocrit 29.8 % (42.0-52.0); Hemoglobin 9.8 g/dL (14.0-18.0); Mean Corpuscular HGB CONC 32.9 g/dL (32.0-36.0); Mean Corpuscular Hemoglobin 32.8 pg (27.0-31.0); Mean Corpuscular Volume 99.7 fL (78.0-98.0); Mean Platelet Volume 9.8 fL (7.4-10.4); Platelet Count 278 10x3/uL (130-400); Red Blood Cell (RBC) Count 2.99 mill/uL (4.70-6.10)
[2024-08-30 04:45] LABS: ALT (SGPT) 24 U/L (8-55); AST (SGOT) 20 U/L (5-34); Albumin 2.6 g/dL (3.4-4.8); Alkaline Phosphatase 67 U/L (40-110); Anion Gap 11 mmol/L (10-20); BUN (Urea Nitrogen) 21 mg/dL (8.4-25.7); Bilirubin, Total 0.4 mg/dL (0.2-1.2); Calc. Creatinine Clearance 159 mL/min (70-130); Calcium 7.7 mg/dL (7.8-10.44); Carbon Dioxide 31 mmol/L (23-31); Chloride 107 mmol/L (98-107); Estimated GFR 108; Globulin 2.6 g/dL (2.4-3.5); Glucose 197 mg/dL (80-115); Potassium 3.2 mmol/L (3.5-5.1); Protein, Total 5.2 g/dL (5.8-8.1); Sodium 146 mmol/L (136-145)
[2024-08-30 05:09] LABS: Band 6 % (5-11); Lymphocytes 5 % (21-51); Monocytes 4 % (0-10); Myelocyte 2 % (0-0); Neutrophil 84 % (42-75); Platelet Adequacy Comment Platelets Normal; Polychromasia SLIGHT = 2-3 cells HPF (0-2); Smudge Cells 9.7 %
[2024-08-30] MEDS: Potassium Bicarbonate/Cit Ac 20 MEQ TAB PER TUBE SCH ×2 (12:20→22:12)
[2024-08-30 16:57] LABS: Potassium 3.3 mmol/L (3.5-5.1)
[2024-08-31 05:26] LABS: Hematocrit 27.4 % (42.0-52.0); Hemoglobin 9.1 g/dL (14.0-18.0); Mean Corpuscular HGB CONC 33.2 g/dL (32.0-36.0); Mean Corpuscular Hemoglobin 33.5 pg (27.0-31.0); Mean Corpuscular Volume 100.7 fL (78.0-98.0); Mean Platelet Volume 9.5 fL (7.4-10.4); Platelet Count 262 10x3/uL (130-400); RBC Distribution Width 15.6 % (11.5-14.5); Red Blood Cell (RBC) Count 2.72 mill/uL (4.70-6.10)
[2024-08-31 05:40] LABS: ALT (SGPT) 22 U/L (8-55); AST (SGOT) 19 U/L (5-34); Albumin 2.5 g/dL (3.4-4.8); Alkaline Phosphatase 64 U/L (40-110); Anion Gap 8 mmol/L (10-20); BUN (Urea Nitrogen) 18 mg/dL (8.4-25.7); Bilirubin, Total 0.4 mg/dL (0.2-1.2); Calc. Creatinine Clearance 178 mL/min (70-130); Calcium 7.7 mg/dL (7.8-10.44); Carbon Dioxide 34 mmol/L (23-31); Chloride 108 mmol/L (98-107); Estimated GFR 113; Globulin 2.6 g/dL (2.4-3.5); Glucose 158 mg/dL (80-115); Potassium 3.4 mmol/L (3.5-5.1); Protein, Total 5.1 g/dL (5.8-8.1); Sodium 147 mmol/L (136-145)
[2024-08-31 06:00] LABS: Band 5 % (5-11); Eosinophils 1 % (0-10); Hypochromia SLIGHT = 6-15 cells HPF (0-5); Lymphocytes 7 % (21-51); Macrocytosis SLIGHT = 6-15 cells HPF (0-5); Monocytes 9 % (0-10); Neutrophil 76 % (42-75); Platelet Adequacy Comment Platelets Normal; Polychromasia SLIGHT = 2-3 cells HPF (0-2); Reactive Lymphocytes 3 % (0-10)
[2024-08-31] MEDS: Potassium Chloride 20 MEQ in Premix 1 BAG IVPB SCH (09:27)
[2024-09-01 04:49] LABS: Hematocrit 28.7 % (42.0-52.0); Hemoglobin 9.3 g/dL (14.0-18.0); Mean Corpuscular HGB CONC 32.4 g/dL (32.0-36.0); Mean Corpuscular Hemoglobin 33.1 pg (27.0-31.0); Mean Corpuscular Volume 102.1 fL (78.0-98.0); Mean Platelet Volume 9.4 fL (7.4-10.4); Platelet Count 281 10x3/uL (130-400); RBC Distribution Width 15.7 % (11.5-14.5); Red Blood Cell (RBC) Count 2.81 mill/uL (4.70-6.10)
[2024-09-01 04:58] LABS: ALT (SGPT) 21 U/L (8-55); AST (SGOT) 21 U/L (5-34); Albumin 2.5 g/dL (3.4-4.8); Alkaline Phosphatase 70 U/L (40-110); Anion Gap 10 mmol/L (10-20); BUN (Urea Nitrogen) 20 mg/dL (8.4-25.7); Bilirubin, Total 0.4 mg/dL (0.2-1.2); Calc. Creatinine Clearance 168 mL/min (70-130); Calcium 7.8 mg/dL (7.8-10.44); Carbon Dioxide 33 mmol/L (23-31); Chloride 106 mmol/L (98-107); Estimated GFR 111; Globulin 2.7 g/dL (2.4-3.5); Glucose 155 mg/dL (80-115); Potassium 3.4 mmol/L (3.5-5.1); Protein, Total 5.2 g/dL (5.8-8.1); Sodium 146 mmol/L (136-145)
[2024-09-01 05:15] LABS: Band 12 % (5-11); Hypochromia SLIGHT = 6-15 cells HPF (0-5); Lymphocytes 14 % (21-51); Macrocytosis SLIGHT = 6-15 cells HPF (0-5); Monocytes 4 % (0-10); Myelocyte 2 % (0-0); Neutrophil 67 % (42-75); Nucleated RBC (Manual Ct) 1 % (0); Platelet Adequacy Comment Platelets Normal; Polychromasia SLIGHT = 2-3 cells HPF (0-2)
[2024-09-01] MEDS: Potassium Chloride 40 MEQ in Premix 1 BAG IVPB SCH (08:55)
[2024-09-01 13:54] LABS: Potassium 3.8 mmol/L (3.5-5.1)
[2024-09-02 04:56] LABS: Hematocrit 27.7 % (42.0-52.0); Hemoglobin 9.1 g/dL (14.0-18.0); Mean Corpuscular HGB CONC 32.9 g/dL (32.0-36.0); Mean Corpuscular Hemoglobin 33.3 pg (27.0-31.0); Mean Corpuscular Volume 101.5 fL (78.0-98.0); Mean Platelet Volume 9.3 fL (7.4-10.4); Platelet Count 239 10x3/uL (130-400); RBC Distribution Width 15.8 % (11.5-14.5); Red Blood Cell (RBC) Count 2.73 mill/uL (4.70-6.10)
[2024-09-02 05:05] LABS: ALT (SGPT) 18 U/L (8-55); AST (SGOT) 18 U/L (5-34); Albumin 2.4 g/dL (3.4-4.8); Alkaline Phosphatase 72 U/L (40-110); Anion Gap 10 mmol/L (10-20); BUN (Urea Nitrogen) 20 mg/dL (8.4-25.7); Bilirubin, Total 0.4 mg/dL (0.2-1.2); Calc. Creatinine Clearance 183 mL/min (70-130); Calcium 7.8 mg/dL (7.8-10.44); Carbon Dioxide 34 mmol/L (23-31); Chloride 103 mmol/L (98-107); Estimated GFR 114; Globulin 2.7 g/dL (2.4-3.5); Glucose 163 mg/dL (80-115); Potassium 3.3 mmol/L (3.5-5.1); Protein, Total 5.1 g/dL (5.8-8.1); Sodium 144 mmol/L (136-145)
[2024-09-02 05:30] LABS: Band 7 % (5-11); Hypochromia SLIGHT = 6-15 cells HPF (0-5); Lymphocytes 6 % (21-51); Monocytes 3 % (0-10); Neutrophil 83 % (42-75); Platelet Adequacy Comment Platelets Normal; Polychromasia SLIGHT = 2-3 cells HPF (0-2); Smudge Cells 7.8 %
[2024-09-02] MEDS: Potassium Chloride 40 MEQ in Premix 1 BAG IVPB SCH (09:23)
[2024-09-02 15:19] LABS: Potassium 3.8 mmol/L (3.5-5.1)
[2024-09-03 04:51] LABS: Hematocrit 28.1 % (42.0-52.0); Hemoglobin 9.2 g/dL (14.0-18.0); Mean Corpuscular HGB CONC 32.7 g/dL (32.0-36.0); Mean Corpuscular Hemoglobin 33.2 pg (27.0-31.0); Mean Corpuscular Volume 101.4 fL (78.0-98.0); Mean Platelet Volume 9.3 fL (7.4-10.4); Platelet Count 226 10x3/uL (130-400); Red Blood Cell (RBC) Count 2.77 mill/uL (4.70-6.10)
[2024-09-03 05:10] LABS: ALT (SGPT) 18 U/L (8-55); AST (SGOT) 19 U/L (5-34); Albumin 2.4 g/dL (3.4-4.8); Alkaline Phosphatase 67 U/L (40-110); Anion Gap 12 mmol/L (10-20); BUN (Urea Nitrogen) 19 mg/dL (8.4-25.7); Bilirubin, Total 0.3 mg/dL (0.2-1.2); Calc. Creatinine Clearance 191 mL/min (70-130); Carbon Dioxide 31 mmol/L (23-31); Chloride 106 mmol/L (98-107); Estimated GFR 115; Globulin 2.7 g/dL (2.4-3.5); Glucose 135 mg/dL (80-115); Potassium 3.4 mmol/L (3.5-5.1); Protein, Total 5.1 g/dL (5.8-8.1); Sodium 146 mmol/L (136-145)
[2024-09-03 05:27] LABS: Anisocytosis SLIGHT = 6-15 cells HPF (0-5); Dohle Bodies SLIGHT; Lymphocytes 9 % (21-51); Macrocytosis SLIGHT = 6-15 cells HPF (0-5); Metamyelocyte 3 % (0-0); Monocytes 3 % (0-10); Myelocyte 1 % (0-0); Neutrophil 84 % (42-75); Platelet Adequacy Comment Platelets Normal; Polychromasia MODERATE = 3-4 cells HPF (0-2); Toxic Granulation SLIGHT
[2024-09-03] MEDS: Furosemide 40 MG (4 mL) VIAL SLOW IVP SCH (08:47)
[2024-09-03 09:25] LABS: Actual Bicarbonate (HCO3v) 35.6 mEq/L (22-28); Base Excess 9.9 mEq/L (-2.0 to +3.0); Calcium, Ionized (venous) 1.09 mmol/L (1.16-1.32); Chloride (VBG) 101 mmol/L (98-106); Hematocrit-VBG 31 % (42.0-52.0); Hemoglobin (Hb) 10.6 g/dL (12.6-17.4); Potassium (VBG) 3.54 mmol/L (3.70-5.30); Sodium 141 mmol/L (133-146); pH (venous) 7.434 (7.32-7.43)
[2024-09-03] MEDS: Dextrose 5 %-0.45 % NaCl 1,000 ML IV SCH (09:33)
[2024-09-03] MEDS: Potassium Chloride 20 MEQ in Premix 1 BAG IVPB SCH (09:38)
[2024-09-03 17:51] LABS: Potassium 3.6 mmol/L (3.5-5.1)
[2024-09-04] MEDS: Acetaminophen 325 MG TAB PO PRN (00:28)
[2024-09-04 05:02] LABS: Hematocrit 27.5 % (42.0-52.0); Hemoglobin 9.2 g/dL (14.0-18.0); Mean Corpuscular HGB CONC 33.5 g/dL (32.0-36.0); Mean Corpuscular Hemoglobin 33.2 pg (27.0-31.0); Mean Corpuscular Volume 99.3 fL (78.0-98.0); Mean Platelet Volume 9.1 fL (7.4-10.4); Platelet Count 212 10x3/uL (130-400); RBC Distribution Width 15.9 % (11.5-14.5); Red Blood Cell (RBC) Count 2.77 mill/uL (4.70-6.10)
[2024-09-04 05:12] LABS: ALT (SGPT) 17 U/L (8-55); AST (SGOT) 19 U/L (5-34); Albumin 2.4 g/dL (3.4-4.8); Alkaline Phosphatase 64 U/L (40-110); Anion Gap 11 mmol/L (10-20); BUN (Urea Nitrogen) 17 mg/dL (8.4-25.7); Bilirubin, Total 0.4 mg/dL (0.2-1.2); Calc. Creatinine Clearance 190 mL/min (70-130); Calcium 7.8 mg/dL (7.8-10.44); Carbon Dioxide 31 mmol/L (23-31); Chloride 102 mmol/L (98-107); Estimated GFR 115; Globulin 2.8 g/dL (2.4-3.5); Glucose 204 mg/dL (80-115); Potassium 3.3 mmol/L (3.5-5.1); Protein, Total 5.2 g/dL (5.8-8.1); Sodium 141 mmol/L (136-145)
[2024-09-04 05:27] LABS: Anisocytosis SLIGHT = 6-15 cells HPF (0-5); Band 2 % (5-11); Lymphocytes 4 % (21-51); Metamyelocyte 1 % (0-0); Monocytes 2 % (0-10); Myelocyte 3 % (0-0); Neutrophil 88 % (42-75); Platelet Adequacy Comment Platelets Normal; Polychromasia SLIGHT = 2-3 cells HPF (0-2)
[2024-09-04] MEDS: Potassium Bicarbonate/Cit Ac 20 MEQ TAB PER TUBE SCH (08:17)
[2024-09-04 12:10] VITALS: BMI 29.3
[2024-09-04 14:03] LABS: Potassium 3.2 mmol/L (3.5-5.1)
[2024-09-04] MEDS: Potassium Chloride 40 MEQ in Premix 1 BAG IVPB SCH (16:04)
[2024-09-04 20:34] LABS: Potassium 3.6 mmol/L (3.5-5.1)
[2024-09-05 04:57] LABS: Hematocrit 27.6 % (42.0-52.0); Hemoglobin 9.2 g/dL (14.0-18.0); Mean Corpuscular HGB CONC 33.3 g/dL (32.0-36.0); Mean Corpuscular Hemoglobin 32.9 pg (27.0-31.0); Mean Corpuscular Volume 98.6 fL (78.0-98.0); Mean Platelet Volume 9.6 fL (7.4-10.4); Platelet Count 237 10x3/uL (130-400); RBC Distribution Width 16.6 % (11.5-14.5)
[2024-09-05 05:09] LABS: ALT (SGPT) 16 U/L (8-55); AST (SGOT) 17 U/L (5-34); Albumin 2.5 g/dL (3.4-4.8); Alkaline Phosphatase 65 U/L (40-110); Anion Gap 10 mmol/L (10-20); BUN (Urea Nitrogen) 19 mg/dL (8.4-25.7); Bilirubin, Total 0.4 mg/dL (0.2-1.2); Calc. Creatinine Clearance 197 mL/min (70-130); Calcium 8.2 mg/dL (7.8-10.44); Carbon Dioxide 29 mmol/L (23-31); Chloride 107 mmol/L (98-107); Estimated GFR 116; Globulin 2.8 g/dL (2.4-3.5); Glucose 112 mg/dL (80-115); Potassium 3.3 mmol/L (3.5-5.1); Protein, Total 5.3 g/dL (5.8-8.1); Sodium 143 mmol/L (136-145)
[2024-09-05 06:31] LABS: Platelet Adequacy Comment Platelets Normal; Polychromasia SLIGHT = 2-3 cells HPF (0-2)
[2024-09-05 06:56] LABS: #Basophils 0.03 10x3/uL (0.0-0.2); #Eosinophils Less than 0.03 10x3/uL (0.0-0.7); %Basophils 0.4 % (0.0-1.0); %Eosinophils 0.3 % (0.0-10.0); %Lymphocytes 12.2 % (21.0-51.0); %Monocytes 7.8 % (0.0-10.0); %Neutrophils 73.7 % (42.0-75.0)
[2024-09-05] MEDS: Furosemide 40 MG (4 mL) VIAL SLOW IVP SCH (07:33)
[2024-09-05] MEDS: Potassium Bicarbonate/Cit Ac 20 MEQ TAB PO SCH ×3 (09:19→11:19)
[2024-09-05] MEDS: Metolazone 5 MG TAB PER TUBE SCH (09:25)
[2024-09-05] MEDS: Electrolyte Replacement Protocol 1 EACH FS ONE (09:29)
[2024-09-05 09:49] LABS: Chloride 118 mmol/L (98-107); Potassium 3.5 mmol/L (3.5-5.1); Sodium 147 mmol/L (136-145)
[2024-09-05 09:50] LABS: ALT (SGPT) 24 U/L (8-55); AST (SGOT) 16 U/L (5-34); Albumin 1.9 g/dL (3.4-4.8); Alkaline Phosphatase 48 U/L (40-110); Anion Gap 11 mmol/L (10-20); BUN (Urea Nitrogen) 23 mg/dL (8.4-25.7); Bilirubin, Total 0.3 mg/dL (0.2-1.2); Calc. Creatinine Clearance 169 mL/min (70-130); Calcium 7.4 mg/dL (7.6-10.4); Carbon Dioxide 22 mmol/L (23-31); Estimated GFR 108; Globulin 2.6 g/dL (2.4-3.5); Glucose 216 mg/dL (80-115); Protein, Total 4.5 g/dL (5.8-8.1)
[2024-09-05 09:51] LABS: %Neutrophils 87.9 % (42.0-75.0); Mean Corpuscular HGB CONC 33.3 g/dL (32.0-36.0); Mean Corpuscular Hemoglobin 32.7 pg (27.0-31.0); Mean Platelet Volume 10.2 fL (7.4-10.4); Platelet Count 154 10x3/uL (130-400); RBC Distribution Width 13.2 % (11.5-14.5); Red Blood Cell (RBC) Count 3.06 mill/uL (4.70-6.10)
[2024-09-05 09:52] LABS: #Basophils 0.03 10x3/uL (0.0-0.2); %Basophils 0.3 % (0.0-1.0); %Eosinophils 0.7 % (0.0-10.0); %Lymphocytes 5.4 % (21.0-51.0); %Monocytes 3.4 % (0.0-10.0)
[2024-09-05 12:20] VITALS: TEMP 97.2
[2024-09-05 12:36] VITALS: BP 137/74
== END 2024-09-05 13:40 | disposition short-term general hospital (02) | DRG 3 ==
LOC: CCU 10:15
PROVIDERS: ADMIT Internal Medicine; ATTEND Internal Medicine
PROC: 00940ZZ Drainage of Intracranial Subdural Space, Open Approach (ICD-10-PCS; principal; 2024-08-12)
PROC: 0NR70JZ Replacement of Occipital Bone with Synthetic Substitute, Open Approach (ICD-10-PCS; 2024-08-12)
PROC: 02HV33Z Insertion of Infusion Device into Superior Vena Cava, Percutaneous Approach (ICD-10-PCS; 2024-08-12)
PROC: 5A1955Z Respiratory Ventilation, Greater than 96 Consecutive Hours (ICD-10-PCS; 2024-08-12)
PROC: 3E03329 Introduction of Other Anti-infective into Peripheral Vein, Percutaneous Approach (ICD-10-PCS; 2024-08-12)
PROC: 0BH17EZ Insertion of Endotracheal Airway into Trachea, Via Natural or Artificial Opening (ICD-10-PCS; 2024-08-12)
PROC: 009630Z Drainage of Cerebral Ventricle with Drainage Device, Percutaneous Approach (ICD-10-PCS; 2024-08-15)
PROC: 0B113F4 Bypass Trachea to Cutaneous with Tracheostomy Device, Percutaneous Approach (ICD-10-PCS; 2024-08-23)
PROC: 06H03DZ Insertion of Intraluminal Device into Inferior Vena Cava, Percutaneous Approach (ICD-10-PCS; 2024-08-23)
PROC: 0DJ08ZZ Inspection of Upper Intestinal Tract, Via Natural or Artificial Opening Endoscopic (ICD-10-PCS; 2024-08-24)
PROC: 0DH63UZ Insertion of Feeding Device into Stomach, Percutaneous Approach (ICD-10-PCS; 2024-08-25)
DX: A41.4 Sepsis due to anaerobes (principal); G06.0 Intracranial abscess and granuloma; G04.81 Other encephalitis and encephalomyelitis; G93.41 Metabolic encephalopathy; G93.6 Cerebral edema; J96.01 Acute respiratory failure with hypoxia; G04.90 Encephalitis and encephalomyelitis, unspecified; C79.31 Secondary malignant neoplasm of brain; N17.9 Acute kidney failure, unspecified; E87.0 Hyperosmolality and hypernatremia; I82.412 Acute embolism and thrombosis of left femoral vein; I10 Essential (primary) hypertension; R00.0 Tachycardia, unspecified; R73.9 Hyperglycemia, unspecified; T38.0X5A Adverse effect of glucocorticoids and synthetic analogues, initial encounter; E86.0 Dehydration; E87.6 Hypokalemia; K21.00 Gastro-esophageal reflux disease with esophagitis, without bleeding; Z79.4 Long term (current) use of insulin; Z79.899 Other long term (current) drug therapy
CPT/HCPCS: 36415; 36416; 36573; 36600; 37191; 51701; 70450; 70553; 71045; 74176; 76376; 80053; 80202; 80306; 80307; 81001; 82010; 82140; 82550; 82805; 82945; 83605; 83735; 83930; 84100; 84157; 84443; 84484; 85025; 85060; 85610; 85730; 86141; 87040; 87070; 87076; 87077; 87102; 87116; 87186; 87205; 87206; 87389; 87449; 87798; 87899; 89051; 93306; 93970; 94002; 94003; 94640; 96361; 96365; 96366; 96367; 96372; 96375; B4087; C1713; C1751; C1769; C1880; C1894; J0360; J0613; J0690; J0692; J0696; J1100; J1815; J1940; J2060; J2150; J2250; J2272; J2405; J2470; J2543; J2704; J3010; J3230; J3370; J3475; J3480; J3486; J3490; J7042; J7050; J7070; J7120; P9047; Q9967